=== PATIENT | female | born 2000 | race Caucasian/White ===

== ENCOUNTER 2020-12-25 08:13 | Outpatient (CLI) | payer OTHER, SELFPAY ==
--- NOTE | 2020-12-25 08:42 | MR_ITS ---
WS: [id number] MRI HEAD WITHOUT CONTRAST TECHNIQUE: Sagittal T1, T2 axial, T2 axial FLAIR, axial and coronal T1 images, axial susceptibility w eighted imaging, axial diffusion weighted images, and coronal T2 images were obtained. CLINICAL INFORMATION: POSTCONCUSSION SYNDROME, LIGHT HEADED,HEADACHE COMPARISON: None. FINDINGS: No evidence of restricted diffusion to suggest acute ischemia. Ventricular system and basal cisterns are patent. Normal pressley-white differentiation. No extra-axial fluid collections. No evidence of mass or mass effect. Normal posterior fossa. Normal vascular flow voids at the skull base. No extra-axial fluid collection s. No evidence of mass or mass effect. Paranasal sinuses and mastoid air cells well aerated. Normal o ptic chiasm and pituitary infundibulum. Temporal lobes and hippocampal formations are normal in appea misti. Small focus of hemosiderin in the parasagittal right parietal lobe measuring 5 mm. Tiny amount of T1 and T2 signal abnormality in this area. This may be due to prior trauma with focal hemosiderin, avughn noma, or possibly small aneurysm. Additional small focus of susceptibility in the right frontal lobe at the vertex. Sagittal location may be represent dystrophic calcification along the falx but nonspec ific. Above findings can be further evaluated with noncontrast head CT and CTA. MR/MR head wo con* [id number] IMPRESSION: 1. No evidence of restricted diffusion to suggest acute ischemia. 2. Normal pressley-white differentiation. A few tiny foci of T2 hyperintensity in the subcortical frontal white matter nonspecific but can be seen with migraine headaches. 3. 5 mm focus of hemosiderin on the susceptibly weighted images right parasagi ttal parietal lobe adjacent to the falx. Tiny trace of T1 and T2 hyperintensity in this area. This may represent a small cavernoma or focus of prior hemorrhag e. Recommend further evaluation with noncontrasted CT and CTA to exclude small aneurysm in this location. 4. Additional small focus of susceptibility in the right frontal lobe at the v ertex. This may represent dystrophic calcification along the falx but nonspecif ic. This can also be further evaluated with CT/CTA 5. No other suspicious findings.
== END 2020-12-25 08:14 | disposition home or self-care (01) ==
PROVIDERS: Visit Provider Nurse Practitioner Family
DX: F07.81 Postconcussional syndrome (principal); R42 Dizziness and giddiness; R51.9 Headache, unspecified
CPT/HCPCS: 70551

== ENCOUNTER 2020-12-30 07:56 | Outpatient (CLI) | payer OTHER, SELFPAY ==
--- NOTE | 2020-12-30 08:22 | CT_ITS ---
WS: [id number] CT ANGIOGRAM CEREBRAL ARTERIES HISTORY: ABNORMAL MRI, POST CONCUSSION Syndrome, lightheadedness TECHNIQUE: Pre and postcontrast imaging through the brain. CT angiogram is performed of the cerebral arteries. During arterial injection imaging is obtained from the skull vertex to the skull base in 1. 25 mm imaging. Coronal and sagittal reformats are submitted. Additional multi planar reformats of the cerebral arteries are submitted, MIP imaging also reviewed. All CT scans at [facility] use at least one of these dose optimization techniques: automated exposure control; mA and/or kV adjustme nt per patient size (includes targeted exams where dose is matched to clinical indication); or iterat jane reconstruction. CONTRAST: Omnipaque 350; 95 mL IV. DLP: 1282.0 mGycm COMPARISON: MRI 12/25/[address]: No acute intracranial hemorrhage or edema. Previously described signal abnormali ties along the parasagittal falx described on the recent MRI correspond to calcific deposits along th e falx. The larger one more anteriorly measures 10 x 4 mm. The smaller more posterior RIGHT parasagit alexis calcification measures 5 x 5 mm. These do not enhance and are consistent with benign calcific dep osits along the falx or alternatively small calcified meningiomas. No associated soft tissue mass. Th e remaining brain is negative. Ventricles are normal size. No inferior displacement of cerebellar ton sils. Intracranial vertebral arteries: Normal with no significant atherosclerosis. Basilar artery: No significant stenosis or occlusion. No aneurysm. Intracranial Internal carotid arteries: Demonstrates no significant stenosis or plaque. Middle cerebral arteries: Normal. Anterior cerebral arteries and ACOM: Normal. Posterior cerebral arteries and PCOM's: Normal. Dural venous sinuses are normally enhancing. Mastoid air cells: Normal. Paranasal sinuses: Normal. Calvarium: Normal. CT/CT angio head [id number] IMPRESSION: 1. Normal noncontrast CT brain. 2. Previously described signal abnormalities along the falx seen on the MRI co rrespond to calcifications with no associated soft tissue mass. These are proba shan degenerative calcifications along the falx or small meningiomas. No associa dilcia soft tissue mass or mass effect. 3. Normal CT angiogram carotid arteries. No dural venous sinus thrombosis.
[2020-12-30] MEDS: iohexol 350 mg/mL 100 mL Btl IV (08:47)
== END 2020-12-30 07:57 | disposition home or self-care (01) ==
PROVIDERS: Visit Provider Family Medicine
DX: R90.89 Other abnormal findings on diagnostic imaging of central nervous system (principal); F07.81 Postconcussional syndrome; R42 Dizziness and giddiness
CPT/HCPCS: 70496; Q9967

== ENCOUNTER → 2023-08-01 10:57 | Outpatient (BNVA) | payer OTHER, SELFPAY | PROVIDERS: PCP Family Medicine; Visit Provider Emergency Medicine | DX: M25.511 Pain in right shoulder (principal) | CPT/HCPCS: 73030 ==